=== PATIENT | female | born 1930 | race Caucasian/White ===

== ENCOUNTER 2017-07-14 11:13 | Inpatient (IN) | payer MEDICARE, OTHER ==
[~2017-07-14] VITALS: Ht 165.1 cm; Wt 82.1 kg
[~2017-07-14 11:13] MED LIST: ASPIR 8181 MG PO; CRESTOR10 MG; CRESTOR5 MG PO; DEPAKOTE ER500 MG PO; FISH OIL; FISH OIL 1,001000 M2 PO; GARLIC OIL1 EACH PO; GINKO BILOBA PO; GLUCOSAMINE HC500 MG PO; HYDRALAZINE; HYDROCHLOROTH12.5 M1 PO; LEVOTHROID100 MC1 PO; LEVOTHYROXIN0.125 M1 PO; LIPITOR 20 MG T20 M1 PO; LOPERAMIDE 2 MG2 M1 PO; LOPRESSOR25; LOPRESSOR25 PO; LOPRESSOR50 PO; LOTRISONE CREAM15 GM TOP; NABUMETONE 500500 M1 PO; NITROGLYCERIN0.4 MG PO; NORVASC5 MG PO; OMEPRAZOLE20 M2 PO; PROCTOCREAM-HC30 G1 RECTAL; REQUIP0.5 MG PO; SEROQUEL 25 MG25 M1 PO; TOPROL XL25 MG PO; VITAMIN C + RO500 MG PO
[2017-07-14] MEDS ORDERED: HYDRALAZINE 10M10 MG PO (11:33)
[2017-07-14] MEDS ORDERED: LOPERAMIDE 2 MG2 M1 PO (11:37)
[2017-07-14] MEDS ORDERED: DYMISTA NASAL S23 GM NASAL (11:38)
[2017-07-14] MEDS ORDERED: TRIAMCINOLONE A80 G2 TOP (11:38)
[2017-07-14] MEDS ORDERED: NAMZARIC 28 MG1 EACH PO (11:38)
[2017-07-14 11:58] LABS: ABSOLUTE BASOPHILS 0.1 thou/uL (0.0-0.2); ABSOLUTE EOSINOPHILS 0.2 thou/uL (0.0-0.7); ABSOLUTE LYMPHOCYTES 1.7 thou/uL (0.8-5.3); ABSOLUTE MONOCYTES 0.9 thou/uL (0.0-1.2); ABSOLUTE NEUTROPHILS 6.2 thou/uL (1.6-8.1); BASOPHILS 1.1 %; EOSINOPHILS 2.6 %; HEMATOCRIT 40.8 % (37.0-47.0); HEMOGLOBIN 13.8 gm/dL (12.0-15.0); LYMPHOCYTES 18.9 %; MCH 32.1 pg (26.0-34.0); MCHC 33.7 g/dL (28.0-37.0); MCV 95.2 fL (80.0-100.0); MONOCYTES 9.7 %; MPV 8.8 fl. (7.2-11.1); NUCLEATED RBCS 0 /100WBC; PLATELET COUNT* 210 thou/uL (150-400); POLYS 67.7 %; RBC 4.28 mil/uL (4.20-5.00); RDW-CV 12.9 % (10.5-14.5); WBC 9.2 thou/uL (4.0-11.0)
[2017-07-14 12:06] LABS: ANION GAP 7 mmol/L (7-16); BUN 19 mg/dL (7-18); CALCIUM 8.6 mg/dL (8.5-10.1); CHLORIDE 105 mmol/L (98-107); CO2 28 mmol/L (21-32); CREATININE 1.7 mg/dL (0.6-1.3); GLUCOSE 119 mg/dL (70-99); POTASSIUM 4.1 mmol/L (3.5-5.1); SODIUM 140 mmol/L (136-145)
[2017-07-14 12:14] LABS: ALKALINE PHOSPHATASE 87 U/L (46-116); LIPASE 151 U/L (73-393); SGOT 12 U/L (15-37); SGPT 16 U/L (30-65); TOTAL BILIRUBIN 0.7 mg/dL (<0.1-1.0); TOTAL PROTEIN 6.5 g/dL (6.4-8.2); TROPONIN-I LEVEL <0.06 ng/mL (<0.06)
[2017-07-14 12:21] LABS: APTT 26.6 Seconds (25.0-31.3); INR 1.1; PROTIME 10.9 Seconds (9.20-11.50)
[2017-07-14 13:23] LABS: URINE BILIRUBIN NEGATIVE (Negative); URINE BLOOD NEGATIVE (Negative); URINE CLARITY CLEAR; URINE COLOR YELLOW; URINE GLUCOSE-RANDOM NEGATIVE (Negative); URINE KETONES NEGATIVE (Negative); URINE LEUKOCYTES-REFLEX 1+ (Negative); URINE NITRITE-REFLEX NEGATIVE (Negative); URINE PROTEIN NEGATIVE (Negative); URINE SPECIFIC GRAVITY <= 1.005 (1.005-1.030); URINE UROBILINOGEN 0.2 E.U./dl (0.2-1.0)
[2017-07-14 13:31] LABS: SQUAMOUS 4-10 Moderate /LPF (0-3)
[2017-07-14 13:32] LABS: BACTERIA-REFLEX 1-9 Few /HPF (None Seen); CASTS None Seen /LPF (None Seen); CRYSTALS None Seen /LPF (None Seen); MUCUS 0-3 Light strn/LPF (None Seen); URINE RBC 0-2 Rare /HPF (0-2); URINE WBC-REFLEX 0-5 Rare /HPF (0-5)
[2017-07-14 15:59] VITALS: BP 143/54
[2017-07-14 16:20] VITALS: BP 134/53
[2017-07-14 16:36] LABS: CREATININE 1.5 mg/dL (0.6-1.3); MAGNESIUM 1.9 mg/dL (1.8-2.4); POTASSIUM 4.1 mmol/L (3.5-5.1)
[2017-07-14 17:20] VITALS: BP 171/58
[2017-07-14 17:23] VITALS: BP 169/52
[2017-07-14 17:25] VITALS: BP 194/56
--- NOTE | 2017-07-14 17:26 | NUR ---
PT ADMITTED TO ROOM 220 VIA CART FROM ED AT APPROXIMATELY 1610 WITH BRADYCARDIA AND SYNCOPE. REPORT RECEIVED FROM DARLENE SIGALA. ADMISSION ASSESSMENT AND HISTORY COMPLETED. REFER TO CHARTING. FALL AGREEMENT AND MEDICARE FORMS SIGNED. MEDICATIONS RECONCILED AND PHARMACY ENTERED. PT A&0X3, FORGETFUL. DEMENTIA NOTED. PT DAUGHTER AT BEDSIDE AND STATED PT HAS FALLEN MULTIPLE TIMES RECENTLY. PT RESIDES AT THE [facility]. PT TRACING SB ON THE STEAM BOX OPERATOR. RATE IN THE LOWER 50'S. PT ON RA SAT UPPER 90'S. DENIES ANY SHORTNESS OF BREATH. PT DENIES ANY PAIN. ORTHOSTATS ORDERED AND COMPLETED. REFER TO CHARTING. IVF. PT UP WITH 1 ASSIST AND OWN WALKER TO BATHROOM. CARDIOLOGY CONSULT IN PLACE. KELSEY MARRUFO, CARDIOLOGY MOWER SHARPENER HERE TO SEE PT. ORDERS RECEIVED FOR US CAROTIDS AND ECHO. VSS. MEDICATIONS PER MAR. PT REPOSITIONS SELF IN BED WITH REMINDERS. HOURLY ROUNDING OBSERVED. BED IN LOW POSITION. BED ALARM IN PLACE. FALL PRECAUTIONS IN PLACE. CALL LIGHT WITHIN REACH. WILL CONTINUE PLAN OF CARE.
[2017-07-14 20:00] VITALS: BP 145/48
[2017-07-15] VITALS: BP 159/53
[2017-07-15 04:00] VITALS: BP 135/60
[2017-07-15 06:07] LABS: CHOLESTEROL 129 mg/dL (<200); HDL CHOLESTEROL 53 mg/dL (>40); LDL CHOLESTEROL 64 mg/dL (<100); SERUM ASSESSMENT Clear; TC:HDL 2.4 Ratio (Not establshd); TRIGLYCERIDE 64 mg/dL (<150); VLDL 13 mg/dL (<40)
--- NOTE | 2017-07-15 06:08 | NUR ---
ASSUMED PATIENT CARE AT 1900. PATIENT ALERT TO SELF. SON AT BEDSIDE. NO COMPLAINTS OF PAIN OR DISCOMFORT. ABLE TO AMBULATE TO THE RESTROOM WITH STANDBY AND A ROLLER WALKER. IV REMAINS PATENT WITH NS GOING AT 100ML QH. SKIN INTACT. HOURLY ROUNDING COMPLETED DOCUMENTED. BALANCER COMPLETED CHARTED.
--- NOTE | 2017-07-15 06:19 | EKG ---
[place] [address] ELECTROCARDIOGRAM REPORT Name: CHAYITO YAN Room: [address] ADM IN .R.#: [id number] Admission: 07/14/17 Attend Phys: Mervin Pierre Discharge: Date of : [birth year] Report #: [id number] THIS REPORT FOR: //name// [facility] ED Test Date: 2017-07-14 Test Time: 11:35:56 Pat Name: CHAYITO YAN Department: Room: [facility] Gender: F Mysql Database Developer: Rohit MORENO : 1930 Requested By: Ericka Abreu Order Number: [id number] MD: Deacon Alex Measurements Intervals [place] Rate: 49 P: 52 MI: 196 QRS: 24 QRSD: 115 T: 100 QT: 457 QTc: 413 Interpretive Statements Sinus bradycardia Nonspecific T abnormalities, anterior leads Compared to ECG 02/04/2016 21:01:15 T-wave abnormality now present Incomplete right bundle-branch block no longer present Electronically Signed On 07-15-2017 6:19:23 RN RECRUITMENT by Deacon Alex [email or web address] <ELECTRONICALLY SIGNED> By: Deacon Alex MD, FACC 07/15/17 0619 1135 1135 Deacon Alex MD, FAC /EPI
[2017-07-15 09:00] VITALS: BP 140/48
--- NOTE | 2017-07-15 10:51 | NUR ---
VSS, ASSUMED CARE IN THE AM, ASSESSMENT PERFORMED AND CHARTED, FALL PRECAUTIONS IN PLACE AND CALL LIGHT IN REACH, PT IS A&O4 AND UP WITH ONE AND WALKER, PT IS ON RA AND IS TRACING SB ON THE MONITOR, SHE DENIES ANY PAIN, PT GOAL IS TO SIT UP IN CHAIR WILL FOLLOW WITH PLAN OF CARE.
[2017-07-15 11:29] VITALS: BP 138/54
--- NOTE | 2017-07-15 12:53 | 2DMMODE ---
[place] [address] 2 D/M-MODE ECHOCARDIOGRAM Name: CHAYITO YAN Room: [address] IN [facility]#: [id number] Admission: 07/14/17 Attend Phys: Jason San Discharge: Date of : [birth year] Date of Service: 07/15/17 1253 Report #: [id number] THIS REPORT FOR: //name// APPROVED REPORT Study performed: 07/15/2017 10:52:08 EXAM: Comprehensive 2D, Doppler, and color-flow Echocardiogram Patient Location: In-Patient Room #: 220 Status: routine BSA: 1.92 HR: 57 bpm BP: 135/60 mmHg Rhythm: NSR Other Information Study Quality: Good Indications Bradycardia Syncope 2D Dimensions LVEF(%): 75.78 (>50%) IVSd: 10.27 (7-11mm) LVOT Diam: 21.32 (18-24mm) LVDd: 49.08 mm PWd: 11.00 (7-11mm) Ascending Ao: 37.36 (22-36mm) LVDs: 27.17 (25-40mm) Aortic Root: 29.78 mm Holt's LVEF: 75.78 % Volumes Left Atrial Volume (Systole) LA ESV Index: 26.20 mL/m2 Aortic Valve AoV Peak Armando.: 1.52 m/s AO Peak Gr.: 9.26 mmHg LVOT Max P.95 mmHg AO Mean Gr.: 4.75 mmHg LVOT Mean P.88 mmHg LVOT Max V: 1.32 m/s AO V2 VTI: 37.15 cm LVOT Mean V: 0.76 m/s VARINDER (VTI): 3.04 cm2 LVOT V1 VTI: 31.66 [place] [address] 2 D/M-MODE ECHOCARDIOGRAM Name: CHAYITO YAN Room: [address] IN [facility]#: [id number] Admission: 07/14/17 Attend Phys: Jason San Discharge: Date of : [birth year] Date of Service: 07/15/17 1253 Report #: [id number] E/A Ratio: 0.93 MV Decel. Time: 192.69 ms MV E Max Armando.: 1.07 m/s MV PHT: 55.88 ms MVA (PHT): 3.94 cm2 TDI E/Lateral E': 8.92 E/Medial E': 10.70 Medial E' Armando.: 0.10 m/s Lateral E' Armando.: 0.12 m/s Pulmonary Valve PV Peak Armando.: 1.12 m/s PV Peak Gr.: 4.98 mmHg Tricuspid Valve TR Peak Gr.: 28.92 mmHg RVSP: 33.00 mmHg Left Ventricle The left ventricle is normal size. There is normal LV segmental wall motion. There is normal left ventricular wall thickness. Left ventricular systolic function is normal. The left ventricular ejection fraction is within the normal range. LVEF is 60-65%. Grade I - abnormal relaxation pattern. Right Ventricle The right ventricle is normal size. The right ventricular systolic function is normal. Atria The left atrium size is normal. The right atrium size is normal. Aortic Valve Mild aortic valve sclerosis. Trace aortic regurgitation. No hemodynamically significant valvular aortic stenosis. Mitral Valve There is mitral annular calcification. Trace mitral regurgitation. No evidence of mitral valve stenosis. Tricuspid Valve The tricuspid valve is normal in structure. Trace tricuspid regurgitation. The RVSP is 30-35 mmHg. Pulmonic Valve The pulmonary valve is normal in structure[place] [address] 2 D/M-MODE ECHOCARDIOGRAM Name: CHAYITO YAN Room: [address] IN [facility]#: [id number] Admission: 07/14/17 Attend Phys: Jason San Discharge: Date of : [birth year] Date of Service: 07/15/17 1253 Report #: [id number] regurgitation. Great Vessels The aortic root is normal in size. IVC is normal in size and collapses with >50% inspiration Pericardium There is no pericardial effusion. <Conclusion> The left ventricle is normal size. There is normal left ventricular wall thickness. Left ventricular systolic function is normal. The left ventricular ejection fraction is within the normal range. LVEF is 60-65%. Grade I - abnormal relaxation pattern. The right ventricle is normal size. The left atrium size is normal. Mild aortic valve sclerosis. Trace aortic regurgitation. No hemodynamically significant valvular aortic stenosis. There is mitral annular calcification. Trace mitral regurgitation. No evidence of mitral valve stenosis. The tricuspid valve is normal in structure. Trace tricuspid regurgitation. The RVSP is 30-35 mmHg. IVC is normal in size and collapses with >50% inspiration There is no pericardial effusion. There is normal LV segmental wall motion. <ELECTRONICALLY SIGNED> By: Ariel Triplett MD, FACC 07/15/17 1253 1253 1253 Ariel Triplett MD, FACC /INF
[2017-07-15 15:37] VITALS: BP 129/57
--- NOTE | 2017-07-15 16:00 | NUR ---
Pt was out of the room when CM went to assess, will f/u later
--- NOTE | 2017-07-15 18:22 | NUR ---
VSS, PT IS PROGRESSING TWARDS GOAL, PT IS UP WITH ON AND WALKER, PT IS A&O3-4 AND DENIES ANY PAIN AT THIS TIME, ON RA AND TRACING SR ON THE MONITOR, HOURLY ROUNDS COMPLETED, PT HAS COMPLETED ALL STUDIES AND MAY D/C TO HOME TOMORROW. WILL FOLLOW WITH PLAN OF CARE.
[2017-07-15 21:00] VITALS: BP 134/61
[2017-07-16] VITALS: BP 118/64
[2017-07-16 04:00] VITALS: BP 142/44
[2017-07-16 05:16] LABS: ABSOLUTE BASOPHILS 0.1 thou/uL (0.0-0.2); ABSOLUTE EOSINOPHILS 0.4 thou/uL (0.0-0.7); ABSOLUTE LYMPHOCYTES 2.4 thou/uL (0.8-5.3); ABSOLUTE MONOCYTES 0.9 thou/uL (0.0-1.2); ABSOLUTE NEUTROPHILS 4.3 thou/uL (1.6-8.1); BASOPHILS 1.4 %; EOSINOPHILS 4.5 %; HEMOGLOBIN 12.6 gm/dL (12.0-15.0); LYMPHOCYTES 29.8 %; MCV 94.2 fL (80.0-100.0); MONOCYTES 10.8 %; MPV 8.9 fl. (7.2-11.1); NUCLEATED RBCS 0 /100WBC; PLATELET COUNT* 174 thou/uL (150-400); POLYS 53.5 %; RBC 3.93 mil/uL (4.20-5.00); RDW-CV 12.7 % (10.5-14.5); WBC 8.1 thou/uL (4.0-11.0)
[2017-07-16 05:55] LABS: ALBUMIN 2.6 g/dL (3.4-5.0); CALCIUM 8.1 mg/dL (8.5-10.1); CREATININE 1.3 mg/dL (0.6-1.3); TOTAL BILIRUBIN 0.6 mg/dL (<0.1-1.0); TOTAL PROTEIN 5.3 g/dL (6.4-8.2)
[2017-07-16 08:00] VITALS: BP 124/60
--- NOTE | 2017-07-16 09:03 | NUR ---
NO ACCUTE CHANGES OVER NIGHT, PT A/OX4, SR ON THE MONITOR, RA, UP SBA WITH WALKER, VSS, MEDS/ASSESSMENT PER CHARTING, NEW IV PLACED, HOULRY ROUNDING/FALL PRECAUTIONS IN PLACE, REPORT GIVEN TODAY RN.
[2017-07-16] MEDS ORDERED: LEVAQUIN 750 M750 MG PO (10:58)
--- NOTE | 2017-07-16 11:33 | NUR ---
ASSUMED CARE OF PT AT 0730. PT RESTING IN BED WAITING FOR BREAKFAST. PT A&0X3, FORGETFUL AND CONFUSED AT TIMES. DEMENTIA NOTED. PT DENIES ANY PAIN OR SHORTNESS OF BREATH AT THIS TIME. PT TRACING SR ON THE STATOR TESTER. ON RA SAT 93%. PT UP WITH 1 SBA TO BATHROOM. PT GOAL FOR TODAY IS TO POSSIBLY DISCHARGE BACK TO [facility] AFTER GETTING CLEARANCE FROM CARDIOLOGY. AM ASSESSMENT CHARTED. MEDICATIONS PER MAR. PT REPOSITIONS SELF. HOURLY ROUNDING OBSERVED. BED IN LOW POSITION. BED ALARM IN PLACE. FALL PRECAUTIONS IN PLACE. CALL LIGHT WITHIN REACH. WILL CONTINUE PLAN OF CARE.
[2017-07-16 11:56] VITALS: BP 136/45
[2017-07-16 14:06] VITALS: BP 136/45
[2017-07-16 14:30] VITALS: BP 136/45
--- NOTE | 2017-07-16 14:34 | NUR ---
CM SPOKE TO THE PATIENT TO DISCUSS HOME SITUATION, DISCHARGE PLANNING, AND TO INFORM OF THE ROLE OF CM. PATIENT ALERT AND ORIENTED. PATIENT RESIDES AT THE [facility] IN [place]. PATIENT INDEPENDENT WITH BATHING AND DRESSING. PATIENT USES NO DME. PATIENT HAS A HX OF HH BUT COULD NOT RECALL THE NAME. PATIENT HAS NO HX OF SNF. PATIENT PLANS TO RETURN TO THE [facility] AT D/C. CM WILL REMAIN AVAILABLE TO ASSIST AND FOLLOW NEEDED.
--- NOTE | 2017-07-16 14:37 | NUR ---
PATIENT TO D/C TODAY BACK TO [facility]. PATIENT AND HER DTR CHOSE [facility] FOR HH. CM SPOKE TO CHAPITO AT [facility] TO INFORM OF THE REFERRAL AND FAXED THE PATIENTS FACESHEET, H&P, AND D/C ORDERS. CM WILL REMAIN AVAILABLE TO ASSIST AND FOLLOW NEEDED.
--- NOTE | 2017-07-16 15:18 | NUR ---
CARDIOLOGY HERE TO SEE PT TODAY. CARDIOLOGY SIGNED OFF. DISCHARGE ORDERS RECEIVED. DISCHARGE INSTRUCTIONS, CARE NOTES AND FOLLOW UP APPTS GIVEN TO PT DAUGHTER WELL COPIED IN FOLDER FOR [facility]. PT AND PT DAUGHTER COMMUNICATE UNDERSTANDING OF DISCHARGE TEACHING. IV AND CARE MANAGEMENT COORDINATOR REMOVED. PT DISCHARGED WITH ALL BELONGINGS AND PAPERWORK VIA WHEELCHAIR WITH NURSING STAFF TO DAUGHTER OWN PERSONAL VEHICLE. DAUGHTER TO TRANSPORT PT TO [facility]. REPORT CALLED TO DANIEL AT [facility].
== END 2017-07-16 15:20 | DRG 73 ==
LOC: M.ERS 11:13 → M.TBA-ER 12:51 → M.2W 12:51
PROVIDERS: Physician Assistant; ADMIT Internal Medicine
PROC: 0HQGXZZ Repair Left Hand Skin, External Approach (ICD-10-PCS; principal; 2017-07-14)
DX: G90.8 Other disorders of autonomic nervous system (principal); N17.0 Acute kidney failure with tubular necrosis; E43 Unspecified severe protein-calorie malnutrition; N39.0 Urinary tract infection, site not specified; I95.1 Orthostatic hypotension; R00.1 Bradycardia, unspecified; F03.90 Unspecified dementia, unspecified severity, without behavioral disturbance, psychotic disturbance, mood disturbance, and anxiety; Z96.642 Presence of left artificial hip joint; I25.10 Atherosclerotic heart disease of native coronary artery without angina pectoris; I73.9 Peripheral vascular disease, unspecified; M19.90 Unspecified osteoarthritis, unspecified site; S61.219A Laceration without foreign body of unspecified finger without damage to nail, initial encounter; E78.5 Hyperlipidemia, unspecified; I12.9 Hypertensive chronic kidney disease with stage 1 through stage 4 chronic kidney disease, or unspecified chronic kidney disease; N18.3 Chronic kidney disease, stage 3 (moderate); E03.9 Hypothyroidism, unspecified; K21.9 Gastro-esophageal reflux disease without esophagitis; Z95.1 Presence of aortocoronary bypass graft; Z90.49 Acquired absence of other specified parts of digestive tract; Z95.5 Presence of coronary angioplasty implant and graft; Z87.442 Personal history of urinary calculi; Z98.42 Cataract extraction status, left eye; Z98.41 Cataract extraction status, right eye; Z88.8 Allergy status to other drugs, medicaments and biological substances; Z87.891 Personal history of nicotine dependence; W18.39XA Other fall on same level, initial encounter; Y93.89 Activity, other specified; Y92.89 Other specified places as the place of occurrence of the external cause; Y99.8 Other external cause status; E86.0 Dehydration